=== PATIENT | male | born 1960 | race Caucasian/White ===

== ENCOUNTER → 2021-10-08 | Outpatient (CLI) | payer MEDICARE ==
--- NOTE | 2021-10-08 11:36 | CTL ---
EXAMINATION TYPE: CT Low Dose Lung DATE OF EXAM ORDERED: 10/08/2021 COMPARISON: None HISTORY: . Low Dose CT Lung Screening CT DLP: [address] CTDI: 2.14 mGy IV CONTRAST USED: None. SCREENING VISIT: First visit COMPARISON: None. TECHNIQUE: Low dose computed tomography scan was performed through the chest at 1 millimeter thick se ctions and reconstructed images in the coronal plane at [address] DIAGNOSTIC QUALITY: Satisfactory FINDINGS: LUNG NODULES: Not presentLeft lung: no nodules identified.Right lung: no nodules identified. LUNGS: COPD: Severity: None Fibrosis: Severity:None Lymph nodes: None Other findings: None RIGHT PLEURAL SPACE: Effusion: None Calcification: None Thickening: None Pneumothorax: None LEFT PLEURAL SPACE: Effusion: None Calcification: None Thickening: None Pneumothorax: None HEART: Heart Size: Mildly enlarged Coronary calcification: Mild Pericardial effusion: None OTHER FINDINGS: Upper abdomen: No significant abnormality Bony thorax: Degenerative changes Supraclavicular region: No significant abnormalityOther: No significant abnormalityI IMPRESSION: Negative FOLLOW UP CT CHEST RECOMMENDATION: Follow-up screening in one year CT LUNG RAD: LUNG RAD CATEGORY 1 negative
== END | disposition home or self-care (01) ==
LOC: RADCTMAIN 10:59
PROVIDERS: ATTEND Family Medicine
DX: Z12.2 Encounter for screening for malignant neoplasm of respiratory organs (principal); Z87.891 Personal history of nicotine dependence
CPT/HCPCS: 71271

== ENCOUNTER 2023-02-27 14:00 | Observation (INO) | payer MEDICARE ==
[2023-02-27] MEDS ORDERED: SODIUM CHLORIDE 0.9% 1,000 ML IV STA (16:22)
[2023-02-27] MEDS ORDERED: FAMOTIDINE 20 MG/2 ML VIAL IV STA (16:23)
[2023-02-27] MEDS ORDERED: methylPREDNISolone SOD SUCCI 125 MG/2 ML VIAL IV STA (16:23)
[2023-02-27] MEDS ORDERED: diphenhydrAMINE 50 MG/ML 1 ML VIAL IVP STA (16:23)
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
[2023-02-27 17:09] LABS: Basophils % (A) 0 %; Eosinophils # (A) 0.2 k/uL (0-0.7); Eosinophils % (A) 2 %; HCT 36.8 % (39.0-53.0); HGB 12.4 gm/dL (13.0-17.5); Lymphocytes # (A) 4.5 k/uL (1.0-4.8); Lymphocytes % (A) 37 %; MCH 34.1 pg (25.0-35.0); MCHC 33.7 g/dL (31.0-37.0); MCV 101.3 fL (80.0-100.0); Mean Platelet Volume 8.6; Monocytes # (A) 0.7 k/uL (0-1.0); Monocytes % (A) 6 %; Neutrophils # (A) 6.3 k/uL (1.3-7.7); Neutrophils % (A) 53 %; Platelet Count 186 k/uL (150-450); RBC 3.63 m/uL (4.30-5.90); RDW 12.8 % (11.5-15.5)
[2023-02-27 18:02] LABS: Appearance,Urine Clear (Clear); Bilirubin,Urine Negative (Negative); Blood,Urine Negative (Negative); Color,Urine Yellow; Glucose,Urine (UA) Negative (Negative); Hyaline Casts,Urine 11 /lpf (0-2); Ketones,Urine Trace (Negative); Leukocyte Esterase,Urine Trace (Negative); Mucus,Urine Few /hpf; Nitrite,Urine Negative (Negative); Protein,Urine 1+ (Negative); RBC,Urine 4 /hpf (0-5); Specific Gravity,Urine 1.033 (1.001-1.035); WBC,Urine <1 /hpf (0-5)
[2023-02-27 18:07] LABS: Partial Thromboplastin Time 23.3 sec (22.0-30.0); Prothrombin Time 10.5 sec (9.0-12.0)
--- NOTE | 2023-02-27 18:32 | CT ---
EXAMINATION TYPE: CT abdomen pelvis w con CT DLP: 1036 mGycm, Automated exposure control for dose reduction was used. DATE OF EXAM: 02/27/2023 6:01 PM COMPARISON: CT abdomen pelvis most recent from CLINICAL INDICATION:Male, 62 years old with history of abdominal pain; Pain and swelling of rectum si nce x2days. TECHNIQUE: Axial CT of the abdomen and pelvis. Sagittal and coronal reformats were created on a [employer] workstation. Contrast used:100 ml mL of Isovue 300 with IV Contrast, Oral contrast used: without Oral Contrast FINDINGS: LOWER CHEST: Unremarkable ABDOMEN LIVER: Hepatic cysts. GALLBLADDER AND BILE DUCTS: Unremarkable. PANCREAS: Unremarkable. SPLEEN: Unremarkable. ADRENAL GLANDS: Unremarkable. KIDNEYS AND URETERS: No evidence of hydronephrosis or renal calculus. The ureters are unremarkable. PELVIS BLADDER: Unremarkable REPRODUCTIVE: Unremarkable. ABDOMEN & PELVIS STOMACH AND BOWEL: No evidence of bowel obstruction. Scattered colonic diverticula. The appendix is d ilated with high contrast material extending to the tip. No adjacent fat stranding. PERITONEUM/RETROPERITONEUM: No evidence of pneumoperitoneum or free fluid. VASCULATURE: Mild atherosclerotic calcifications are present throughout the abdominal aorta and its b ranches. No evidence of aortic aneurysm. MUSCULOSKELETAL: No acute osseous abnormalities. Mild disc degeneration changes are present throughou t the thoracolumbar spine. LYMPH NODES: No gross evidence for lymphadenopathy. SOFT TISSUE/ABDOMINAL WALL: . The perianal tissues are relatively unremarkable without evidence for o rganizing fluid collection. Small fat-containing inguinal hernias bilaterally. Small fat-containing u mbilical hernia. IMPRESSION: 1. No perianal organizing fluid collection visualized. No obvious acute process with the anus or rec leona. 2. No evidence for acute abdominal process process.
[2023-02-27 18:56] LABS: ALT 17 U/L (4-49); AST 24 U/L (17-59); African American GFR (CKD) >90 (>60 ml/min/1.73 sqM); Albumin 3.5 g/dL (3.5-5.0); Alkaline Phosphatase 61 U/L (38-126); Amylase 33 U/L (30-110); Anion Gap 8 mmol/L; Blood Urea Nitrogen 18 mg/dL (9-20); Calcium 8.5 mg/dL (8.4-10.2); Carbon Dioxide 21 mmol/L (22-30); Chloride 111 mmol/L (98-107); Glucose 86 mg/dL (74-99); Lipase 95 U/L (23-300); Non-African American GFR(CKD) >90 (>60 ml/min/1.73 sqM); Potassium 4.8 mmol/L (3.5-5.1); Sodium 140 mmol/L (137-145); Total Bilirubin 0.6 mg/dL (0.2-1.3); Total Protein 6.1 g/dL (6.3-8.2)
[2023-02-27] MEDS ORDERED: MORPHINE SULFATE 4 MG/ML SYRINGE IV PRN (19:08)
[2023-02-27] MEDS ORDERED: NALOXONE 0.4 MG/ML 1 ML VIAL IV PRN (19:08)
[2023-02-27] MEDS ORDERED: VANCOMYCIN IV PER PHARMACY 1 EACH MISC MISCELLANE PRN (19:08)
[2023-02-27] MEDS ORDERED: ONDANSETRON 4 MG/2 ML VIAL IVP PRN (19:08)
[2023-02-27] MEDS: SODIUM CHLORIDE 0.9% 1,000 ML IV SCH (20:01)
[2023-02-27] MEDS ORDERED: VANCOMYCIN 1,750 MG in SODIUM CHLORIDE 0.9% 500 ML 500 ML IVPB ONE (20:30)
[2023-02-27] MEDS ORDERED: ACETAMINOPHEN TAB 325 MG TAB PO PRN (22:03)
[2023-02-27] MEDS: ATORVASTATIN 20 MG TAB PO SCH (23:28)
[2023-02-27] MEDS: SODIUM BICARBONATE TAB 650 MG TAB PO SCH (23:28)
[2023-02-27] MEDS: levETIRAcetam 500 MG TAB PO SCH (23:28)
[2023-02-27] MEDS: KETOROLAC 15 MG/ML 1 ML VIAL IVP SCH (23:47)
[2023-02-28] MEDS: KETOROLAC 15 MG/ML 1 ML VIAL IVP SCH ×4 (05:50→23:43)
[2023-02-28] MEDS: SODIUM CHLORIDE 0.9% 1,000 ML IV SCH ×2 (05:52→20:53)
[2023-02-28 06:13] LABS: Basophils % (A) 0 %; Eosinophils % (A) 0 %; HCT 35.7 % (39.0-53.0); HGB 11.8 gm/dL (13.0-17.5); Lymphocytes # (A) 2.9 k/uL (1.0-4.8); Lymphocytes % (A) 36 %; MCH 34.1 pg (25.0-35.0); MCHC 33.2 g/dL (31.0-37.0); MCV 102.7 fL (80.0-100.0); Macrocytosis Slight; Mean Platelet Volume 8.8; Monocytes # (A) 0.2 k/uL (0-1.0); Monocytes % (A) 3 %; Neutrophils # (A) 4.9 k/uL (1.3-7.7); Neutrophils % (A) 60 %; Platelet Count 169 k/uL (150-450); RBC 3.47 m/uL (4.30-5.90); RDW 12.7 % (11.5-15.5); WBC 8.2 k/uL (3.8-10.6)
[2023-02-28 06:52] LABS: African American GFR (CKD) >90 (>60 ml/min/1.73 sqM); Anion Gap 4 mmol/L; Blood Urea Nitrogen 23 mg/dL (9-20); Calcium 8.5 mg/dL (8.4-10.2); Carbon Dioxide 24 mmol/L (22-30); Chloride 113 mmol/L (98-107); Glucose 132 mg/dL (74-99); Non-African American GFR(CKD) >90 (>60 ml/min/1.73 sqM); Potassium 4.7 mmol/L (3.5-5.1); Sodium 141 mmol/L (137-145)
[2023-02-28] MEDS: amLODIPine 10 MG TAB PO SCH (08:35)
[2023-02-28] MEDS: levETIRAcetam 500 MG TAB PO SCH ×3 (08:35→20:52)
[2023-02-28] MEDS: VANCOMYCIN 1,500 MG in SODIUM CHLORIDE 0.9% 500 ML 500 ML IVPB SCH ×2 (10:35→20:52)
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
[2023-02-28] MEDS: SODIUM BICARBONATE TAB 650 MG TAB PO SCH (20:51)
[2023-02-28] MEDS: ATORVASTATIN 20 MG TAB PO SCH (20:51)
[2023-03-01] MEDS: KETOROLAC 15 MG/ML 1 ML VIAL IVP SCH ×4 (06:17→22:58)
[2023-03-01 06:58] LABS: ALT 22 U/L (4-49); AST 24 U/L (17-59); African American GFR (CKD) >90 (>60 ml/min/1.73 sqM); Albumin 2.9 g/dL (3.5-5.0); Albumin/Globulin Ratio 1.3; Alkaline Phosphatase 55 U/L (38-126); Anion Gap 2 mmol/L; Blood Urea Nitrogen 20 mg/dL (9-20); Carbon Dioxide 24 mmol/L (22-30); Chloride 115 mmol/L (98-107); Globulin 2.2 g/dL; Glucose 93 mg/dL (74-99); Non-African American GFR(CKD) >90 (>60 ml/min/1.73 sqM); Potassium 4.3 mmol/L (3.5-5.1); Sodium 141 mmol/L (137-145); Total Bilirubin 0.3 mg/dL (0.2-1.3); Total Protein 5.1 g/dL (6.3-8.2)
[2023-03-01] MEDS ORDERED: VANCOMYCIN TROUGH DUE 1 EACH MISC MISCELLANE ONE (07:00)
[2023-03-01 07:01] LABS: African American GFR (CKD) >90 (>60 ml/min/1.73 sqM); Basophils % (A) 0 %; Eosinophils # (A) 0.1 k/uL (0-0.7); Eosinophils % (A) 1 %; HGB 10.6 gm/dL (13.0-17.5); Lymphocytes % (A) 49 %; MCH 34.2 pg (25.0-35.0); MCHC 34.2 g/dL (31.0-37.0); Monocytes # (A) 0.4 k/uL (0-1.0); Monocytes % (A) 4 %; Neutrophils # (A) 3.6 k/uL (1.3-7.7); Neutrophils % (A) 44 %; Non-African American GFR(CKD) >90 (>60 ml/min/1.73 sqM); Platelet Count 157 k/uL (150-450); RDW 13.1 % (11.5-15.5); WBC 8.2 k/uL (3.8-10.6)
[2023-03-01] MEDS: amLODIPine 10 MG TAB PO SCH (08:29)
[2023-03-01] MEDS: levETIRAcetam 500 MG TAB PO SCH ×3 (08:29→20:51)
[2023-03-01] MEDS: VANCOMYCIN 1,500 MG in SODIUM CHLORIDE 0.9% 500 ML 500 ML IVPB SCH ×2 (09:37→20:51)
[2023-03-01] MEDS: SODIUM CHLORIDE 0.9% 1,000 ML IV SCH ×2 (09:37→20:51)
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
--- NOTE | 2023-03-01 12:52 | P.PN ---
Subjective Progress Note Date: 03/01/23 patient is 62-year-old gentleman with past medical history significant for hypertension, hyperlipidemia, seizure related to the ER because of pain in his rectal area. Patient stated that he has been noticing a swelling around his anal area which was very painful for the last couple of days. Patient has been noticing discharge from his rectal area. Believes that he has a boil there. Denies any fever or chills. Denies any complaint of nausea, vomiting abdominal pain. did have an episode of uncontrolled bowel movement . Denies any history of recent trauma. Initial lab work done in the ER showed white count of 12, hemoglobin 12.4, MCV 101.3, platelet count 186, sodium 140, potassium 4.8, carbonate 21, BUN 18, creatinine 0.75, CT abdominal and pelvis showed no perianal organizing fluid collection visualized. No obvious acute process within the anus or rectum. No evidence of acute abdominal process Patient was admitted to internal medicine service 03/01. Patient seen and examined. States pain in the anal area has improved. Tolerating diet Labs this morning WBC 8.2, hemoglobin 10.6, sodium 141, potassium 4.3 REVIEW OF SYSTEMS: CONSTITUTIONAL: No fever, no malaise,. CARDIOVASCULAR: No chest pain, no palpitations, no syncope. PULMONARY: No shortness of breath, no cough, GASTROINTESTINAL: No diarrhea, no nausea, no vomiting, no abdominal pain. NEUROLOGICAL: No headaches, no weakness, PHYSICAL EXAMINATION: GENERAL: The patient is alert and oriented x3, not in any acute distress. Well developed, well nourished. HEENT: Pupils are round and equally reacting to light. EOMI. No scleral icterus. No conjunctival pallor. Normocephalic, atraumatic. No pharyngeal erythema. No thyromegaly. CARDIOVASCULAR: S1 and S2 present. No murmurs, rubs, or gallops. PULMONARY: Chest is clear to auscultation, no wheezing or crackles. ABDOMEN: Soft, nontender, nondistended, normoactive bowel sounds. No palpable organomegaly. MUSCULOSKELETAL: No joint swelling or deformity. EXTREMITIES: No cyanosis, clubbing, or pedal edema. NEUROLOGICAL: Gross neurological examination did not reveal any focal deficits. SKIN: No rashes. Assessment and plan Anal abscess Perianal cellulitis Hypertension Hyperlipidemia Monitor vital signs Monitor CBC Monitor CMP Continue telemetry monitoring Follow-up on blood cultures Continue IV Rocephin and vancomycin Continue pain management DC fluids Follow-up in ID recs Objective - Vital Signs Vital signs: Vital Signs Temp 98 F 03/01/23 07:00 Pulse 49 L 03/01/23 07:00 Resp 18 03/01/23 07:00 BP 128/64 03/01/23 07:00 Pulse Ox 96 03/01/23 07:00 FiO2 Intake & Output 02/28/23 03/01/23 03/01/23 18:59 06:59 18:59 Intake Total 118 Balance 118 Intake: Oral 118 Other: # Voids 1 2 - Labs CBC & Chem 7: 03/01/23 06:34 03/01/23 06:34 Labs: Abnormal Lab Results - Last 24 Hours (Table) 03/01/23 03/01/23 Range/Units 06:34 06:34 RBC 3.10 L (4.30-5.90) m/uL Hgb 10.6 L (13.0-17.5) gm/dL Hct 31.0 L (39.0-53.0) % Chloride 115 H (98-107) mmol/L Calcium 8.0 L (8.4-10.2) mg/dL Total Protein 5.1 L (6.3-8.2) g/dL Albumin 2.9 L (3.5-5.0) g/dL Microbiology - Last 24 Hours (Table) 02/27/23 16:40 Blood Culture - Preliminary Blood
[2023-03-01] MEDS: SODIUM BICARBONATE TAB 650 MG TAB PO SCH (20:51)
[2023-03-01] MEDS: ATORVASTATIN 20 MG TAB PO SCH (20:51)
--- NOTE | 2023-03-01 22:56 | P.PN ---
Subjective Progress Note Date: 03/01/23 Principal diagnosis: Scrotal/perirectal abscess cellulitis Patient is a 62-year-old male presenting to the hospital with the painful lump to the scrotal/perirectal area with subsequent spontaneous drainage CT was negative for any drainable abscess On today's evaluation that is 03/01/2023, the patient denies having any fever or chills, the patient pain to the perirectal/scrotal area has decreased in intensity and less drainage, patient denies chest pain shortness with a cough no abdominal pain or diarrhea Objective - Vital Signs Vital signs: Vital Signs Temp 98 F 03/01/23 07:00 Pulse 49 L 03/01/23 07:00 Resp 18 03/01/23 07:00 BP 128/64 03/01/23 07:00 Pulse Ox 96 03/01/23 07:00 FiO2 Intake & Output 02/28/23 03/01/23 03/01/23 18:59 06:59 18:59 Intake Total 118 Balance 118 Intake: Oral 118 Other: # Voids 1 2 - Exam GENERAL DESCRIPTION: Middle-age male lying in bed in no distress RESPIRATORY SYSTEM: Unlabored breathing , decreased breath sounds at bases HEART: S1 S2 regular rate and rhythm , ABDOMEN: Soft , no tenderness EXTREMITIES: No edema feet - Labs CBC & Chem 7: 03/01/23 06:34 03/01/23 06:34 Labs: Abnormal Lab Results - Last 24 Hours (Table) 03/01/23 03/01/23 Range/Units 06:34 06:34 RBC 3.10 L (4.30-5.90) m/uL Hgb 10.6 L (13.0-17.5) gm/dL Hct 31.0 L (39.0-53.0) % Chloride 115 H (98-107) mmol/L Calcium 8.0 L (8.4-10.2) mg/dL Total Protein 5.1 L (6.3-8.2) g/dL Albumin 2.9 L (3.5-5.0) g/dL Microbiology - Last 24 Hours (Table) 02/27/23 16:40 Blood Culture - Preliminary Blood Assessment and Plan (1) Perianal cellulitis Current Visit: Yes Status: Acute Code(s): K61.0 - ANAL ABSCESS SNOMED Code (s): 624729442 Plan: 1patient with a perianal/scrotal base abscess with spontaneous drainage started as a small pimple more likely from gram-positive skin ju such as Staph aureus CT was negative for any drainable abscess as apparently it has spontaneously drained 2-patient to continue with Rocephin and vancomycin pharmacy to dose with a target trough of 15 while waiting for the cultures to finalize to determine his discharge antibiotics Time with Patient: Less than 30
[2023-03-02] MEDS: KETOROLAC 15 MG/ML 1 ML VIAL IVP SCH ×3 (05:47→19:33)
[2023-03-02 06:21] LABS: African American GFR (CKD) >90 (>60 ml/min/1.73 sqM); Non-African American GFR(CKD) >90 (>60 ml/min/1.73 sqM)
[2023-03-02] MEDS: levETIRAcetam 500 MG TAB PO SCH ×3 (08:24→20:26)
[2023-03-02] MEDS: amLODIPine 10 MG TAB PO SCH (08:24)
[2023-03-02] MEDS: VANCOMYCIN 1,500 MG in SODIUM CHLORIDE 0.9% 500 ML 500 ML IVPB SCH ×2 (08:51→20:26)
--- NOTE | 2023-03-02 12:41 | P.PN ---
Subjective Progress Note Date: 03/02/23 Principal diagnosis: Scrotal/perirectal abscess cellulitis Patient is a 62-year-old male presenting to the hospital with the painful lump to the scrotal/perirectal area with subsequent spontaneous drainage CT was negative for any drainable abscess On today's evaluation that is 03/02/2023, the patient remains to be afebrile, the patient pain to the perirectal/scrotal area has decreased in intensity and less drainage but patient, patient denies chest pain shortness with a cough no abdominal pain or diarrhea Objective - Vital Signs Vital signs: Vital Signs Temp 98.1 F 03/02/23 07:00 Pulse 50 L 03/02/23 08:00 Resp 16 03/02/23 08:00 BP 122/74 03/02/23 07:00 Pulse Ox 98 03/02/23 07:00 FiO2 Intake & Output 03/01/23 03/02/23 03/02/23 18:59 06:59 18:59 Intake Total 480 Balance 480 Intake: Oral 480 Other: # Voids 2 3 - Exam GENERAL DESCRIPTION: Middle-age male lying in bed in no distress RESPIRATORY SYSTEM: Unlabored breathing , decreased breath sounds at bases HEART: S1 S2 regular rate and rhythm , ABDOMEN: Soft , no tenderness : Small pinhole wound at the base of the scrotum with no drainage EXTREMITIES: No edema feet - Labs CBC & Chem 7: 03/01/23 06:34 03/02/23 05:25 Labs: Microbiology - Last 24 Hours (Table) 02/27/23 23:20 Wound Culture - Preliminary Other - Other Gram Neg Bacilli 02/27/23 16:40 Blood Culture - Preliminary Blood Assessment and Plan (1) Perianal cellulitis Current Visit: Yes Status: Acute Code(s): K61.0 - ANAL ABSCESS SNOMED Code(s): 906247020 Plan: 1patient with a perianal/scrotal base abscess with spontaneous drainage started as a small pimple more likely from gram-positive skin ju such as Staph aureus CT was negative for any drainable abscess as apparently it has spontaneously drained 2-patient local cultures currently growing gram-negative we are waiting for ID sensitivity to determine his discharge antibiotics for now will continue with Rocephin and vancomycin pharmacy to dose with a target trough of 15 , discharge antibiotics on the basis of final culture discussed with the admitting team Time with Patient: Less than 30
[2023-03-02] MEDS: SODIUM CHLORIDE 0.9% 1,000 ML IV SCH (13:04)
--- NOTE | 2023-03-02 13:22 | P.PN ---
Subjective Progress Note Date: 03/02/23 patient is 62-year-old gentleman with past medical history significant for hypertension, hyperlipidemia, seizure related to the ER because of pain in his rectal area. Patient stated that he has been noticing a swelling around his anal area which was very painful for the last couple of days. Patient has been noticing discharge from his rectal area. Believes that he has a boil there. Denies any fever or chills. Denies any complaint of nausea, vomiting abdominal pain. did have an episode of uncontrolled bowel movement . Denies any history of recent trauma. Initial lab work done in the ER showed white count of 12, hemoglobin 12.4, MCV 101.3, platelet count 186, sodium 140, potassium 4.8, carbonate 21, BUN 18, creatinine 0.75, CT abdominal and pelvis showed no perianal organizing fluid collection visualized. No obvious acute process within the anus or rectum. No evidence of acute abdominal process Patient was admitted to internal medicine service 03/01. Patient seen and examined. States pain in the anal area has improved. Tolerating diet Labs this morning WBC 8.2, hemoglobin 10.6, sodium 141, potassium 4.3 03/02. Patient seen and examined. Pain in the anal area has improved, no discharge. Wound cultures growing gram-negative bacilli sensitivity pending. ID recommended discharging once cultures are back finalized REVIEW OF SYSTEMS: CONSTITUTIONAL: No fever, no malaise,. CARDIOVASCULAR: No chest pain, no palpitations, no syncope. PULMONARY: No shortness of breath, no cough, GASTROINTESTINAL: No diarrhea, no abdominal pain. NEUROLOGICAL: No headaches, no weakness, PHYSICAL EXAMINATION: GENERAL: The patient is alert and oriented x3, not in any acute distress. Well developed, well nourished. HEENT: Pupils are round and equally reacting to light. EOMI. No scleral icterus. No conjunctival pallor. Normocephalic, atraumatic. No pharyngeal erythema. No thyromegaly. CARDIOVASCULAR: S1 and S2 present. No murmurs, rubs, or gallops. PULMONARY: Chest is clear to auscultation, no wheezing or crackles. ABDOMEN: Soft, nontender, nondistended, normoactive bowel sounds. No palpable organomegaly. MUSCULOSKELETAL: No joint swelling or deformity. EXTREMITIES: No cyanosis, clubbing, or pedal edema. NEUROLOGICAL: Gross neurological examination did not reveal any focal deficits. SKIN: No rashes. Assessment and plan Anal abscess Perianal cellulitis Hypertension Hyperlipidemia Plan Monitor vital signs Monitor CBC Monitor CMP Follow-up on blood cultures, Wound culture growing gram-negative bacilli Continue IV Rocephin and vancomycin Continue pain management Follow-up in ID recs Objective - Vital Signs Vital signs: Vital Signs Temp 98.1 F 03/02/23 07:00 Pulse 50 L 03/02/23 08:00 Resp 16 03/02/23 08:00 BP 122/74 03/02/23 07:00 Pulse Ox 98 03/02/23 07:00 FiO2 Intake & Output 03/01/23 03/02/23 03/02/23 18:59 06:59 18:59 Intake Total 480 Balance 480 Intake: Oral 480 Other: # Voids 2 3 - Labs CBC & Chem 7: 03/01/23 06:34 03/02/23 05:25 Labs: Microbiology - Last 24 Hours (Table) 02/27/23 23:20 Wound Culture - Preliminary Other - Other Gram Neg Bacilli 02/27/23 16:40 Blood Culture - Preliminary Blood
[2023-03-02] MEDS: ATORVASTATIN 20 MG TAB PO SCH (20:26)
[2023-03-02] MEDS: SODIUM BICARBONATE TAB 650 MG TAB PO SCH (20:26)
[2023-03-03] MEDS: KETOROLAC 15 MG/ML 1 ML VIAL IVP SCH ×2 (00:38→05:50)
[2023-03-03] MEDS: SODIUM CHLORIDE 0.9% 1,000 ML IV SCH (03:07)
[2023-03-03 08:12] VITALS: BP 146/74; PULSE 52; RESP 16; TEMP 98.5
[2023-03-03] MEDS: amLODIPine 10 MG TAB PO SCH (08:50)
[2023-03-03] MEDS: VANCOMYCIN 1,500 MG in SODIUM CHLORIDE 0.9% 500 ML 500 ML IVPB SCH (08:50)
[2023-03-03] MEDS: levETIRAcetam 500 MG TAB PO SCH (09:29)
--- NOTE | 2023-03-03 12:18 | P.DS ---
Providers Date of admission: 02/27/23 19:09 Expected date of discharge: 03/03/23 Attending physician: Abeba Petersen Consults: 02/27/23 21:56 Consult Physician Urgent Consulting Provider: Mandy Ríos Consult Reason/Comments: andreina-anal/renal abscess Do you want consulting provider notified?: Yes, Notify in am Primary care physician: [facility] Course: Discharge diagnoses; Anal abscess Perianal cellulitis Hypertension Hyperlipidemia Hospital course; patient is 62-year-old gentleman with past medical history significant for hypertension, hyperlipidemia, seizure related to the ER because of pain in his rectal area. Patient stated that he has been noticing a swelling around his anal area which was very painful for the last couple of days. Patient has been noticing discharge from his rectal area. Believes that he has a boil there. Denies any fever or chills. Denies any complaint of nausea, vomiting abdominal pain. did have an episode of uncontrolled bowel movement . Denies any history of recent trauma. Initial lab work done in the ER showed white count of 12, hemoglobin 12.4, MCV 101.3, platelet count 186, sodium 140, potassium 4.8, carbonate 21, BUN 18, creatinine 0.75, CT abdominal and pelvis showed no perianal organizing fluid collection visualized. No obvious acute process within the anus or rectum. No evidence of acute abdominal process Patient was admitted to internal medicine service 03/01. Patient seen and examined. States pain in the anal area has improved. Tolerating diet Labs this morning WBC 8.2, hemoglobin 10.6, sodium 141, potassium 4.3 03/02. Patient seen and examined. Pain in the anal area has improved, no discharge. Wound cultures growing gram-negative bacilli sensitivity pending. ID recommended discharging once cultures are back finalized 03/03. Patient seen and examined. Discussed with ID, they recommended discharging patient on oral Cipro PHYSICAL EXAMINATION: GENERAL: The patient is alert and oriented x3, not in any acute distress. Well developed, well nourished. HEENT: Pupils are round and equally reacting to light. EOMI. No scleral icterus. No conjunctival pallor. Normocephalic, atraumatic. No pharyngeal erythema. No thyromegaly. CARDIOVASCULAR: S1 and S2 present. No murmurs, rubs, or gallops. PULMONARY: Chest is clear to auscultation, no wheezing or crackles. ABDOMEN: Soft, nontender, nondistended, normoactive bowel sounds. No palpable organomegaly. MUSCULOSKELETAL: No joint swelling or deformity. EXTREMITIES: No cyanosis, clubbing, or pedal edema. NEUROLOGICAL: Gross neurological examination did not reveal any focal deficits. SKIN: No rashes. Patient Condition at Discharge: Good Plan - Discharge Summary New Discharge Prescriptions: New Ciprofloxacin HCl [Cipro] 500 mg PO BID 10 Days #20 tab Continue lisinopriL [Zestril] 40 mg PO DAILY levETIRAcetam [Keppra Xr] 750 mg PO BID amLODIPine [Norvasc] 10 mg PO DAILY Rosuvastatin [Crestor] 10 mg PO HS Sodium Bicarbonate 325 mg PO HS Discharge Medication List Rosuvastatin [Crestor] 10 mg PO HS 02/27/23 [History] Sodium Bicarbonate 325 mg PO HS 02/27/23 [History] amLODIPine [Norvasc] 10 mg PO DAILY 02/27/23 [History] levETIRAcetam [Keppra Xr] 750 mg PO BID 02/27/23 [History] lisinopriL [Zestril] 40 mg PO DAILY 02/27/23 [History] Ciprofloxacin HCl [Cipro] 500 mg PO BID 10 Days #20 tab 03/03/23 [Rx] Follow up Appointment(s)/Referral(s): Ruth Echosl MD [Primary Care Provider] [facility] [NON-STAFF] - 1 Week [facility], [REFERRING] - 1 Week Mandy Ríos MD [STAFF PHYSICIAN] - 2 Weeks Discharge Disposition: HOME SELF-CARE
== END 2023-03-03 13:09 | disposition home or self-care (01) ==
LOC: EC 14:00 → 6NMEDSUR 19:09
PROVIDERS: ADMIT Hospitalist; ATTEND Hospitalist
DX: K61.2 Anorectal abscess (principal); N15.1 Renal and perinephric abscess; E78.00 Pure hypercholesterolemia, unspecified; I10 Essential (primary) hypertension; G40.909 Epilepsy, unspecified, not intractable, without status epilepticus; F12.90 Cannabis use, unspecified, uncomplicated; F17.210 Nicotine dependence, cigarettes, uncomplicated; I70.0 Atherosclerosis of aorta; K42.9 Umbilical hernia without obstruction or gangrene; K57.30 Diverticulosis of large intestine without perforation or abscess without bleeding; M51.35 Other intervertebral disc degeneration, thoracolumbar region; K40.20 Bilateral inguinal hernia, without obstruction or gangrene, not specified as recurrent; K76.89 Other specified diseases of liver; Z79.899 Other long term (current) drug therapy; Z91.041 Radiographic dye allergy status; Z80.1 Family history of malignant neoplasm of trachea, bronchus and lung
CPT/HCPCS: 96376 ×4; 96361 ×4; 96366 ×4; 96367; 96375 ×2; 96365; 99284; 36415; 80053 ×2; 80048; 82150; 82565 ×2; 83690; 85025 ×3; 80202; 85610; 85730; 81001; 87040; 87070; 87205; 87075; 87077; 87186; 74177; G0378 ×5; J3370 ×5; J1200; J2930; J0696 ×4; J1885 ×5; Q9967

== ENCOUNTER → 2025-01-11 | Outpatient (CLI) | payer MEDICARE ==
--- NOTE | 2025-01-11 13:49 | CTL ---
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 TECHNIQUE: Low dose computed tomography scan was performed through the chest at 1 mm thick sections a nd reconstructed images in multiple planes at 1 mm and [address] DLP: 89.[address] CTDI: 2.2 mGy Automated exposure control for dose reduction was used. CT DIAGNOSTIC QUALITY: Satisfactory EXAMINATION TYPE: CT Low Dose Lung DATE OF EXAM ORDERED: 01/11/2025 CLINICAL INDICATION: Male, 64 years old with history of Z12.2 ENCNTR SCREEN FOR MALIGNANT NEOPLASM OF RESP, history of tobacco use, Lung cancer screening CT DLP: 89.[address] CTDI: 2.2 mGy Automated exposure control for dose reduction was used. Comparison: None TECHNIQUE: Low dose computed tomography scan was performed through the chest at 1 mm thick sections a nd reconstructed images in multiple planes at 1 mm and [address] DIAGNOSTIC QUALITY: Satisfactory FINDINGS: There is no suspicious lung mass or nodule There is no airspace consolidation. There is minimal interstitial scarring in the left lung base. There is no mediastinal, hilar or axillary adenopathy. The great vessels of the chest are normal. The re is no cardiomegaly. There is no pleural effusion, pleural thickening or pneumothorax. No focal osseous lesions are seen. Limited scans the upper abdomen reveals no gross abnormality IMPRESSION: 1. Lung rads Category 1 negative. Continue routine screening at yearly intervals. 2. No acute cardiopulmonary disease. [facility], , 01/11/2025 1:47 PM
== END | disposition home or self-care (01) ==
LOC: RADCTMAIN 11:34
PROVIDERS: ATTEND Family Medicine
DX: Z12.2 Encounter for screening for malignant neoplasm of respiratory organs (principal); F17.210 Nicotine dependence, cigarettes, uncomplicated
CPT/HCPCS: 71271